=== PATIENT | female | born 1965 | race Caucasian/White ===

== ENCOUNTER → 2016-05-31 | Outpatient (CLI) | payer MEDICAID ==
--- NOTE | 2016-06-04 08:44 | RADIOLOGY REPORT PS360 ---
, US ORGAN SITE (BREAST), US BREAST-RT COMPLETE W/AXILLA, US MAMMOTOME-RT DIG MAMM-DX UNI-RT W/CAD ULTRASOUND BREAST ULTRASOUND-GUIDED MAMMOTOME VACUUM ASSISTED CORE BIOPSY with clip placement INDICATION: Breast nodule right COMPARISON: 05/18/2016 mammogram and ultrasound right breast FINDINGS AND PROCEDURE:------ ULTRASOUND RIGHT BREAST: The initial ultrasound again shows mass upper outer quadrant right breast 10 o'clock position outer breast Its position was confirmed and the best route for biopsy was determined by Dr. Humphrey and technologist MW ULTRASOUND-GUIDED MAMMOTOME BIOPSY RIGHT BREAST Following sterile preparation and local skin anesthesia and deep Xylocaine anesthetic placement we proceeded with subsequently mammotome biopsyPatient was offered and received Xanax Lortab prior to this procedure for comfort and mild sedation. Small 2 mm incision was made in the skin by Dr. Humphrey after additional local skin anesthesia was placed, as well as deep anesthetic placement posterior to the lesion The 12-gauge mammotome needle was then passed under ultrasound guidance. It was placed posterior aspect of the nodule and multiple biopsies were obtained removing a significant portion portion of this this nodule. Patient tolerated procedure well.. At the end of procedure was attempted to place the metallic clip with with collagen plug but it did not fully deploy and was pulled back out with the needle. This node metallic marker is in place but the lesion is only partially sampled and there is a significant residual hypoechoic mass here which will serve as a adequate target for subsequent needle localization procedures DIAGNOSTIC RIGHT MAMMOGRAM-POSTBIOPSY Although the metallic clip did not deploy we did perform a mammogram in order to demonstrate the site of postbiopsy changes consistent with the prior mammogram density area noted on 05/18/2016 mammogram. We do see stippled air from the biopsy along the anterior margin of this density at the lesion on today's mammogram. IMPRESSION: -------- 1. Successful ultrasound-guided mammotome biopsy with right breast 2. Note that The metallic Clip marker did not deploy, but there was significant residual hypoechoic tissue at this lesion, which will be readily apparently for subsequent ultrasound-guided wire localization procedures. PATHOLOGY REPORT: * POSITIVE for malignancy * Invasive Moderately Differentiated Ductal Adenocarcinoma. Estrogen and progesterone receptor positive. Her2 receptor equivocal ..
== END ==
LOC: RAD 09:28
DX: N63 Unspecified lump in breast (principal)
CPT/HCPCS: C2618; G0206-RT